=== PATIENT | female | born 1980 | race Caucasian/White ===

== ENCOUNTER 2020-02-05 04:57 | Emergency (ER) | payer SELFPAY ==
[2020-02-05] MEDS ORDERED: ONDANSETRON HCL INJ/PF 4 MG/2 ML SDV IV ONE (05:23)
[2020-02-05] MEDS ORDERED: NORMAL SALINE 1000 ML 1,000 ML IV PRN (05:24)
[2020-02-05 05:48] LABS: ABSOLUTE LYMPHOCYTES (AUTO) 3.3 10^3/uL (0.5-4.7); ABSOLUTE MONOCYTES (AUTO) 0.4 10^3/uL (0.1-1.4); ABSOLUTE NEUT (AUTO) 2.1 10^3/uL (1.7-8.2); BASOPHILS % (AUTO) 0.5 % (0-2); EOSINOPHILS % (AUTO) 0.2 % (0-6); HEMATOCRIT 42.6 % (36.0-47.0); HEMOGLOBIN 14.8 g/dL (12.0-15.5); LYMPHOCYTES % (AUTO) 55.7 % (13-45); MEAN CORPUSCULAR HEMOGLOBIN 33.2 pg (27.0-33.4); MEAN CORPUSCULAR HGB CONC 34.7 g/dL (32.0-36.0); MEAN CORPUSCULAR VOLUME 96 fl (80-97); MONOCYTES % (AUTO) 7.2 % (3-13); PLATELET COUNT 107 10^3/uL (150-450); RED BLOOD COUNT 4.45 10^6/uL (3.72-5.28); RED CELL DISTRIBUTION WIDTH 21.2 % (11.5-14.0); SEGMENTED NEUTROPHILS % (AUTO) 36.4 % (42-78); TOTAL CELLS COUNTED % (AUTO) 100 %; WHITE BLOOD COUNT 5.8 10^3/uL (4.0-10.5)
[2020-02-05 06:17] LABS: ALBUMIN 5.1 g/dL (3.5-5.0); ALKALINE PHOSPHATASE 110 U/L (38-126); ANION GAP 19 (5-19); ASPARTATE AMINO TRANSFERASE 248 U/L (14-36); BILIRUBIN,DIRECT 0.4 mg/dL (0.0-0.4); BLOOD UREA NITROGEN 13 mg/dL (7-20); CALCIUM 8.9 mg/dL (8.4-10.2); CARBON DIOXIDE 24 mmol/L (22-30); CHLORIDE 96 mmol/L (98-107); GLUCOSE 117 mg/dL (75-110); POTASSIUM 3.7 mmol/L (3.6-5.0); TOTAL PROTEIN 8.3 g/dL (6.3-8.2)
--- NOTE | 2020-02-05 06:52 | ER Document Report ---
ED General - General Mode of Arrival: Ambulatory Information source: Patient - HPI Onset: Other - She states her last drink was at 10:00 last night she had 1/2 bottle of vodka Onset/Duration: Persistent Quality of pain: No pain Severity: None Pain Level: Denies Associated symptoms: Other - Agitation and tremors Exacerbated by: Denies Relieved by: Denies Similar symptoms previously: Yes Recently seen / treated by doctor: No <BRUNO PALOMO - Last Filed: 02/05/20 07:24> <BRUNILDA SHEPHERD - Last Filed: 02/05/20 14:53> - General Chief Complaint: Alcohol Withdrawl Stated Complaint: ETOH ABUSE Time Seen by Provider: 02/05/20 06:04 Notes: 39-year-old female presented to ED for alcohol abuse. She states her mother took her to [facility] this morning for alcohol detox and she was told that she had to come to the ER because her alcohol was too high. She states that was 5 according to the patient. She states she drinks a bottle of vodka at least every day. She states she has been drinking vodka for 10 years and every time she tries to stop drinking she develops tremors and cannot control this so she does not complete her detox. She states she did try to go over there but they told her she was too drunk. She denies any hallucinations at this time. She states she does develop them as she becomes more sober. She states she had her last drink at 10:00 last night. (BRUNO PALOMO) - Related Data Allergies/Adverse Reactions: No Known Allergies Allergy (Unverified 02/05/20 05:08) Past Medical History - General Information source: Patient - Social History Smoking Status: Never Smoker Chew tobacco use (# tins/day): No Frequency of alcohol use: Heavy Drug Abuse: None Lives with: Family Family History: Reviewed & Not Pertinent Patient has homicidal ideation: No - Past Medical History Cardiac Medical History: Reports: Hx Hypertension Pulmonary Medical History: Reports: None EENT Medical History: Reports: None Neurological Medical History: Reports: None Endocrine Medical History: Reports: None Renal/ Medical History: Reports: None Malignancy Medical History: Reports: None GI Medical History: Reports: Hx Gastroesophageal Reflux Disease Musculoskeletal Medical History: Reports None Skin Medical History: Reports None Psychiatric Medical History: Reports: None Traumatic Medical History: Reports: None Infectious Medical History: Reports: None Past Surgical History: Reports: Other - Ever fundoplication <BRUNO PALOMO - Last Filed: 02/05/20 07:24> Review of Systems - Review of Systems Constitutional: No symptoms reported EENT: No symptoms reported Cardiovascular: No symptoms reported Respiratory: No symptoms reported Gastrointestinal: No symptoms reported Genitourinary: No symptoms reported Female Genitourinary: No symptoms reported Musculoskeletal: No symptoms reported Skin: No symptoms reported Hematologic/Lymphatic: No symptoms reported Neurological/Psychological: Anxiety, Other - Agitation states she feels like she is starting to develop tremors -: Yes All other systems reviewed and negative <BRUNO PALOMO - Last Filed: 02/05/20 07:24> Physical Exam - Vital signs Interpretation: Normal - General General appearance: Appears well, Alert - HEENT Head: Normocephalic, Atraumatic Eyes: Normal Pupils: PERRL - Respiratory Respiratory status: No respiratory distress Chest status: Nontender Breath sounds: Normal Chest palpation: Normal - Cardiovascular Rhythm: Regular Heart sounds: Normal auscultation Murmur: No - Abdominal Inspection: Normal Distension: No distension Bowel sounds: Normal Tenderness: Nontender Organomegaly: No organomegaly - Back Back: Normal, Nontender - Extremities General upper extremity: Normal inspection, Nontender, Normal color, Normal ROM, Normal temperature General lower extremity: Normal inspection, Nontender, Normal color, Normal ROM, Normal temperature, Normal weight bearing. 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 Sensory: Normal - Psychological Associated symptoms: Normal affect, Normal mood - Skin Skin Temperature: Warm Skin Moisture: Dry Skin Color: Normal <BRUNO PALOMO - Last Filed: 02/05/20 07:24> - Vital signs Vitals: Temp Pulse Resp BP Pulse Ox 98.7 F 108 H 20 143/107 H 98 02/05/20 05:07 02/05/20 05:07 02/05/20 05:07 02/05/20 05:07 02/05/20 05:07 Course - Laboratory Result Diagrams: 02/05/20 05:33 02/05/20 05:33 <BRUNO PALOMO - Last Filed: 02/05/20 07:24> - Laboratory Result Diagrams: 02/05/20 05:33 02/05/20 05:33 <BRUNILDA SHEPHERD - Last Filed: 02/05/20 14:53> - Re-evaluation Re-evalutation: 02/05/20 09:10 patient sleeping at this time, HR 104 on monitor, no distress 02/05/20 14:51 Patient is awake and alert answering questions appropriately. Her alcohol level has come down to 232. She is ambulating without a staggered gait or ataxic gait. She is medically cleared to go to [facility] for treatment for alcohol abuse. Clinically sober 02/05/20 14:53 (BRUNILDA SHEPHERD) - Vital Signs Vital signs: Temp Pulse Resp BP Pulse Ox 98.7 F 108 H 13 114/79 98 02/05/20 05:07 02/05/20 05:07 02/05/20 10:01 02/05/20 10:00 02/05/20 10:01 - Laboratory Laboratory results interpreted by me: 02/05/20 02/05/20 05:33 05:33 RDW 21.2 H Plt Count 107 L Lymph % (Auto) 55.7 H Seg Neutrophils % 36.4 L Chloride 96 L Glucose 117 H AST 248 H ALT 112 H Total Protein 8.3 H Albumin 5.1 H Serum Alcohol 442 H* Discharge <BRUNO PALOMO - Last Filed: 02/05/20 07:24> <BRUNILDA SHEPHERD - Last Filed: 02/05/20 14:53> - Discharge Clinical Impression: Alcohol abuse Condition: Stable Disposition: HOME, SELF-CARE Additional Instructions: proceed to [place] for treatment of alcoholism and alcohol abuse
[2020-02-05] MEDS: LORAZEPAM 1 MG TABLET PO PRN ×2 (06:53→12:37)
[2020-02-05 07:10] LABS: ALCOHOL 442 mg/dL (NONE DETECTED)
[2020-02-05 07:19] LABS: URINE AMPHETAMINES SCREEN NEGATIVE; URINE BARBITURATES SCREEN NEGATIVE; URINE BENZODIAZEPINES SCREEN NEGATIVE; URINE COCAINE SCREEN NEGATIVE; URINE MARIJUANA (THC) SCREEN NEGATIVE; URINE METHADONE SCREEN NEGATIVE; URINE PHENCYCLIDINE SCREEN NEGATIVE
[2020-02-05] MEDS: NORMAL SALINE 1000 ML 1,000 ML with POTASSIUM CHLORIDE 20 MEQ, MAGNESIUM SULFATE 8 MEQ,... IV SCH ×10 (09:42→10:50)
[2020-02-05 10:29] VITALS: BP 114/79
[2020-02-05] MEDS ORDERED: NORMAL SALINE 1000 ML 1,000 ML with POTASSIUM CHLORIDE 20 MEQ, MAGNESIUM SULFATE 8 MEQ,... IV SCH ×5 (18:00)
== END 2020-02-05 15:31 | disposition home or self-care (01) ==
LOC: ER 04:57
DX: F10.239 Alcohol dependence with withdrawal, unspecified (principal); R45.1 Restlessness and agitation; R25.1 Tremor, unspecified; I10 Essential (primary) hypertension
CPT/HCPCS: 99284; 96361; 96375; 96365; 96366; 36415; 82962; 80307 ×2; 85025; 80053; J3475; J3480; J3411; J2405; J7030; J3490

== ENCOUNTER 2020-02-07 02:52 | Emergency (ER) | payer SELFPAY ==
[2020-02-07] MEDS ORDERED: HALOPERIDOL LACTATE INJ 5 MG/1 ML VIAL IM ONE (03:23)
[2020-02-07] MEDS ORDERED: LORAZEPAM INJ 2 MG/1 ML VIAL IM ONE (03:24)
[2020-02-07] MEDS ORDERED: DIPHENHYDRAMINE HCL 50 MG/ML VIAL IM ONE (03:24)
--- NOTE | 2020-02-07 03:48 | ER Document Report ---
Entered by MARIO LANCE SCRIBE 02/07/20 0324 Acting as scribe for:LELIA BARRETO DO ED Psych Disorder / Suicide - General Chief Complaint: Psych Problem Stated Complaint: HALLUCINATION Mode of Arrival: Medic Information source: Patient, Emergency Med Personnel Notes: This 39 year old female patient with a history of heavy ETOH abuse brought in by EMS from [facility] presents to the ED today with complaints of hallucinations that started just prior to arrival. Per EMS, staff at [facility] report that the patient began hallucinating and throwing thing around the room, so they administered x2 mg Ativan PO and x5 mg Haldol PO at 0200 this morning. Patient states that she quit drinking x1.5 weeks ago; however, she was seen here x2 nights ago for ETOH abuse with a serum alcohol of 442; she admitted that she drank 1/2 gallon of vodka at that time, which is a daily event for her. - Related Data Allergies/Adverse Reactions: No Known Allergies Allergy (Unverified 02/05/20 05:08) Past Medical History - General Information source[facility] - Social History Smoking Status: Unknown if Ever Smoked Cigarette use (# per day): No Chew tobacco use (# tins/day): No Smoking Education Provided: No Frequency of alcohol use: Heavy Lives with: Family Family History: Reviewed & Not Pertinent Patient has suicidal ideation: No Patient has homicidal ideation: No - Past Medical History Cardiac Medical History: Reports: Hx Hypertension GI Medical History: Reports: Hx Gastroesophageal Reflux Disease Past Surgical History: Reports: Other - Ever fundoplication Review of Systems - Review of Systems -: Yes ROS unobtainable due to patient's medical condition Physical Exam - Vital signs Vitals: Temp Pulse Resp BP Pulse Ox 98.8 F 97 18 154/90 H 98 02/07/20 03:00 02/07/20 03:00 02/07/20 03:00 02/07/20 03:00 02/07/20 03:00 - General General appearance: Alert, Other - Unkempt appearance - HEENT Head: Normocephalic, Atraumatic Eyes: Normal Pupils: PERRL - Respiratory Respiratory status: No respiratory distress Chest status: Nontender Breath sounds: Normal Chest palpation: Normal - Cardiovascular Rhythm: Regular Heart sounds: Normal auscultation Murmur: No Friction rub: No Gallop: None auscultated - Abdominal Inspection: Normal Distension: No distension Bowel sounds: Normal Tenderness: Nontender - Abdomen soft Organomegaly: No organomegaly - Back Back: Normal, Nontender - Extremities General upper extremity: Normal inspection General lower extremity: Normal inspection. No: Edema - Neurological Neuro grossly intact: Yes - Psychological Associated symptoms: Visual hallucinations, Other - Volatile, emotional, and delusional - Skin Skin Temperature: Warm Skin Moisture: Dry Skin Color: Normal Course - Re-evaluation Re-evalutation: 02/07/20 03:58 Recheck at this time and pt is resting but alert and now more cooperative. Plan is to review the outstanding lab studies and have the psychiatry team evaluate her in the am. Perhaps Etoh related hallucinations vs underlying mental health disorder. Lab studies are pending at this time. - Vital Signs Vital signs: Temp Pulse Resp BP Pulse Ox 99.0 F 93 16 124/92 H 99 02/07/20 03:56 02/07/20 03:56 02/07/20 06:01 02/07/20 06:01 02/07/20 06:01 - Laboratory Result Diagrams: 02/07/20 05:01 02/07/20 03:52 Laboratory results interpreted by me: 02/07/20 02/07/20 03:52 05:01 WBC 2.7 L D RBC 3.60 L Hct 34.7 L RDW 20.9 H Plt Count 44 L Absolute Neuts (auto) 1.4 L Sodium 135.4 L Potassium 3.2 L Glucose 118 H Calcium 10.3 H Magnesium 1.4 L AST 171 H ALT 79 H Salicylates < 1.0 L Acetaminophen < 10 L - EKG Interpretation by Me EKG shows normal: Sinus rhythm Rate: Normal Rhythm: NSR - NSR Nl [place] [address] elevation or depression my interpretation. Discharge - Discharge Clinical Impression: Hallucinations Condition: Stable Disposition: PSYCH HOSP/UNIT I personally performed the services described in the documentation, reviewed and edited the documentation which was dictated to the scribe in my presence, and it accurately records my words and actions.
[2020-02-07 04:52] LABS: ALBUMIN 4.3 g/dL (3.5-5.0); ALKALINE PHOSPHATASE 73 U/L (38-126); ANION GAP 8 (5-19); ASPARTATE AMINO TRANSFERASE 171 U/L (14-36); BILIRUBIN,DIRECT 0.4 mg/dL (0.0-0.4); BILIRUBIN,TOTAL 1.1 mg/dL (0.2-1.3); BLOOD UREA NITROGEN 15 mg/dL (7-20); CALCIUM 10.3 mg/dL (8.4-10.2); CARBON DIOXIDE 29 mmol/L (22-30); CHLORIDE 98 mmol/L (98-107); GLUCOSE 118 mg/dL (75-110); POTASSIUM 3.2 mmol/L (3.6-5.0); TOTAL PROTEIN 7.1 g/dL (6.3-8.2)
[2020-02-07 04:53] LABS: ACETAMINOPHEN < 10 ug/mL (10-30); ALCOHOL < 10 mg/dL (NONE DETECTED); SALICYLATE < 1.0 mg/dL (2.0-20.0)
[2020-02-07 05:18] LABS: ABSOLUTE LYMPHOCYTES (AUTO) 1.1 10^3/uL (0.5-4.7); ABSOLUTE MONOCYTES (AUTO) 0.2 10^3/uL (0.1-1.4); ABSOLUTE NEUT (AUTO) 1.4 10^3/uL (1.7-8.2); BASOPHILS % (AUTO) 0.4 % (0-2); HEMATOCRIT 34.7 % (36.0-47.0); MEAN CORPUSCULAR HEMOGLOBIN 33.4 pg (27.0-33.4); MEAN CORPUSCULAR HGB CONC 34.7 g/dL (32.0-36.0); MEAN CORPUSCULAR VOLUME 96 fl (80-97); MONOCYTES % (AUTO) 5.6 % (3-13); RED CELL DISTRIBUTION WIDTH 20.9 % (11.5-14.0); TOTAL CELLS COUNTED % (AUTO) 100 %
[2020-02-07] MEDS ORDERED: POTASSIUM CHLORIDE 20 MEQ PACKET PO ONE (05:33)
[2020-02-07] MEDS ORDERED: MAGNESIUM OXIDE 400 MG TABLET PO ONE (05:33)
[2020-02-07 05:46] LABS: PLATELET COUNT 44 10^3/uL (150-450); WHITE BLOOD COUNT 2.7 10^3/uL (4.0-10.5)
[2020-02-07 07:03] LABS: APPEARANCE,URINE SLIGHTLY-CLOUDY; BILIRUBIN,URINE NEGATIVE (NEGATIVE); CALCIUM OXALATE CRYSTALS,URINE RARE /HPF; COLOR,URINE YELLOW; GLUCOSE, URINE NEGATIVE (NEGATIVE); KETONES,URINE NEGATIVE (NEGATIVE); LEUKOCYTE ESTERASE,URINE LARGE (NEGATIVE); NITRITE,URINE NEGATIVE (NEGATIVE); PROTEIN,URINE NEGATIVE (NEGATIVE)
--- NOTE | 2020-02-07 14:42 | EKG REPORT ---
SEVERITY:- ABNORMAL ECG - SINUS RHYTHM LEFT VENTRICULAR HYPERTROPHY BORDERLINE T ABNORMALITIES, INFERIOR LEADS : Confirmed by: Shell Browning MD 07-Feb-2020 14:41:34
--- NOTE | 2020-02-07 17:42 | ER Document Report ---
Doctor's Note Notes: 02/07/20 17:41 Patient's vital signs and previous labs, diagnostic images reviewed. Reviewed mental health notes, nurse's notes and previous providers notes. VSS. Pt is in no distress at this time. Denies any SI or HI. General: A&Ox3. Answers questions appropriately. Heart: RRR Lungs: CTAB Psych: sleepy, flat affect A/P: Continue monitoring and rec's per MH. Normal diet still on CIWA precautions
[2020-02-07] MEDS ORDERED: NITROFURANTOIN MONOHYD/M-CRYST 100 MG CAPSULE PO ONE (18:34)
[2020-02-07] MEDS ORDERED: PHENAZOPYRIDINE HCL 200 MG TABLET PO ONE (18:35)
--- NOTE | 2020-02-08 13:34 | PSYCHOLOGICAL NOTE ---
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 She had gotten there Thursday for alcohol detoxification and was acting appropriate until 0200 when she started complaining to staff she was seeing things, became agitated, barricaded herself in her room by putting chair against door, pulled her mattress off her bed and attempted to punch her window because the gas fumes from the chamber. They administered Ativan 2MG Intramuscular and Haldol 5MG by mouth at around 0200 without effectiveness. Patient remained restless and agitated with staff. She kept talking about needing to safe the others from the gas chamber, that she heard them coughing. Once in the ED patient avoided eye contact, was tearful, was writhing her hands together, and said she saw her children they are dying/she needs them to be beneficiary. She was subsequently put on a 24 Hour Petition for Evaluation. Chart review revealed patient was seen in the ED 02/05/2020 for alcohol withdrawal after [facility] sent her to the ED due to alcohol level of almost 500. She had stated then she drinks at least a bottle of Vodka daily, has for the 10 years and in the past when trying to detox she got tremors that she couldnt control so would not finish detox. Her Serum Alcohol Level was 442 upon arrival to ED then and once it decreased to 237 she was sent back to [facility]. At 1210 patient was sleeping. She had been administered Haldol 5, Ativan 2 and Benadryl 5 all Intramuscular at 0330 in ED. Allowed her to sleep. Her psychosis is likely from alcohol withdrawal. Labs indicate UTI. Hematology and Chemistry labs are all over the place. Clinical Presentation: Alcohol Withdrawal Induced Psychosis Impression/Plan: Recommendation to maintain 24 Hour Petition for Evaluation. Let patient sleep. She is likely experiencing psychosis from alcohol withdrawal. Consulted with Dr. Moran regarding the management and care of patient. ED Physician in agreement. ED Physician also started antibiotics for UTI and ordered other testing due to low WBC.
--- NOTE | 2020-02-08 14:44 | ER Document Report ---
ED General - General Chief Complaint: Psych Problem Stated Complaint: HALLUCINATION Primary Care Provider: [facility] [Outside] - Follow up as needed Mode of Arrival: Medic Notes: 39-year-old female with past medical history of hypertension and alcohol intoxication presents this morning after she was hallucinating over at [facility]. States that she was brought in on the wanting detox. Was placed over at [facility] and then she developed hallucinations this morning states that she was seeing and hearing things other people were not hearing. States that her last alcoholic beverage was just prior to her first admission to the hospital. States she had 1-2 shots of vodka. Reports that she is having some pain with urination. Denies any flank pain or suprapubic pain. She was treated with Macrobid here. Discussed with [facility] with mental health and from a mental health perspective she is cleared to go. She does have a low white count at 2.7 this is new. Her last white count on February 04 was 5.8. States that she is just bored. - Related Data Allergies/Adverse Reactions: No Known Allergies Allergy (Unverified 02/05/20 05:08) Past Medical History - General Information source: [facility] Records - Social History Smoking Status: Unknown if Ever Smoked Cigarette use (# per day): No Chew tobacco use (# tins/day): No Frequency of alcohol use: Heavy Lives with: Family Family History: Reviewed & Not Pertinent Patient has suicidal ideation: No Patient has homicidal ideation: No - Past Medical History Cardiac Medical History: Reports: Hx Hypertension GI Medical History: Reports: Hx Gastroesophageal Reflux Disease Past Surgical History: Reports: Other - Ever fundoplication Review of Systems - Review of Systems Constitutional: No symptoms reported EENT: No symptoms reported Cardiovascular: No symptoms reported Respiratory: No symptoms reported Gastrointestinal: No symptoms reported Genitourinary: No symptoms reported Female Genitourinary: See HPI Musculoskeletal: No symptoms reported Skin: No symptoms reported Neurological/Psychological: No symptoms reported Physical Exam - Vital signs Vitals: Temp Pulse Resp BP Pulse Ox 98.8 F 97 18 154/90 H 98 02/07/20 03:00 02/07/20 03:00 02/07/20 03:00 02/07/20 03:00 02/07/20 03:00 - Notes Notes: Adult General: GENERAL: Alert, interacts well. No acute distress HEAD: Normocephalic, atraumatic EYES: Pupils equal, round and reactive to light. Extraocular movements intact. ENT: Airway patent. Nares patent. NECK: Full range of motion. Supple. Trachea midline. LUNGS: Clear to auscultation bilaterally, no wheezes, rales, or rhonchi. No respiratory distress. Nontender chest wall. HEART: Regular rate and rhythm. No murmurs, rubs or gallops. ABDOMEN: Soft, nontender. Nondistended. Bowel sounds present in all 4 quadrants. No rebound, guarding or masses. GENITOURINARY: Deferred EXTREMITIES: Moves all 4 extremities spontaneously. No edema, normal radial and dorsal pedis pulses bilaterally. No cyanosis. BACK: Moves all extremities with full range of motion. NEUROLOGICAL: Mild tremor in bilateral hands. Alert and oriented x3. Normal speech. Strength 5/ 5 in all extremities. PSYCH: Normal affect, normal mood. SKIN: Warm, dry, normal turgor. No rashes or lesions noted. Course - Re-evaluation Re-evalutation: 02/08/20 14:42 Patient is cleared from mental health perspective. I will go ahead and redraw patient's CBC to reevaluate her white count. Her white count is normal I will go ahead discharge the patient. Also treat patient for urinary tract infection as she has positive leukocyte esterase and blood in her urine. She has had 1 dose of Macrobid while in the emergency department was also given phenazopyridine. COVID and HIV are negative. CBC shows increased her platelets to 55 and an increase of her WBCs to 3.7. I discussed this with the patient that her alcohol use is likely contributing to this. I discussed with her that she is likely at increased risk of developing infections and increased risk of bleeding at this time. Discussed with patient that she will need to follow-up with her primary care provider to trend these values in the appropriate direction. She acknowledges and verbalizes understanding of instructions and plan. She is medically cleared. Is also been cleared from psych. Who recommends no medications. She has appropriate follow-up with a mental health provider. Counseled for alcohol detox. Patient acknowledges and verbalizes understanding of all instructions and plan. All questions answered. - Vital Signs Vital signs: Temp Pulse Resp BP Pulse Ox 99.0 F 90 12 137/104 H 97 02/08/20 16:00 02/08/20 16:00 02/08/20 16:00 02/08/20 16:00 02/08/20 16:00 - Laboratory Result Diagrams: 02/08/20 14:48 02/07/20 03:52 Laboratory results interpreted by me: 02/07/20 02/07/20 02/07/20 03:52 05:01 06:46 WBC 2.7 L D RBC 3.60 L Hct 34.7 L MCV MCH RDW 20.9 H Plt Count 44 L Absolute Neuts (auto) 1.4 L Sodium 135.4 L Potassium 3.2 L Glucose 118 H Calcium 10.3 H Magnesium 1.4 L AST 171 H ALT 79 H Urine Blood MODERATE H Urine Urobilinogen 2.0 H Ur Leukocyte Esterase LARGE H Salicylates < 1.0 L Acetaminophen < 10 L 02/08/20 14:48 WBC 3.7 L RBC Hct MCV 98 H MCH 33.7 H RDW 21.0 H Plt Count 55 L Absolute Neuts (auto) Sodium Potassium Glucose Calcium Magnesium AST ALT Urine Blood Urine Urobilinogen Ur Leukocyte Esterase Salicylates Acetaminophen Discharge - Discharge Clinical Impression: Hallucinations Alcohol withdrawal Qualifiers: Complication of substance-induced condition: with perceptual disturbance Qualified Code(s): F10.232 - Alcohol dependence with withdrawal with perceptual disturbance UTI (urinary tract infection) Qualifiers: Indwelling urinary catheter type: unspecified Encounter type: initial encounter Condition: Stable Disposition: HOME, SELF-CARE Instructions: Cephalexin ([facility]), Urinary Tract Infection ([facility]) Additional Instructions: You have been evaluated both medical and behavioral health teams have been deemed appropriate for discharge. You are encouraged to follow-up with an outpatient mental health/substance abuse provider for continued treatment. You have been provided local resource list of area providers including detox facilities and mobile crisis contact information. Alcohol Withdrawal Your symptoms are caused by alcohol withdrawal. After a period of frequent drinking, the brain and body are changed by the alcohol. When you quit or reduce your drinking, the nervous system becomes unstable. Withdrawal symptoms can start a few hours after your last drink, but sometimes don't begin until a coup le of days later. Symptoms can include shakiness, sweating, insomnia, nausea, vomiting, fearfulness, hallucinations, and seizures. In addition to the acute effects of alcohol withdrawal, we often have to deal with the medical effects of alcoholism. These problems often include dehydration, stomach irritation, intestinal bleeding, low blood sugar, liver disease, and pancreas inflammation. Treatment for alcohol withdrawal includes mild sedatives, vitamins, and fl uids. You need to be with someone who can help if symptoms become severe. Many patients can withdraw at home. Admission to the hospital or a detox facility may be necessary if withdrawal symptoms are severe and uncontrollable. Abstaining from alcohol is the only effective long-term treatment. If you start drinking again, you will not be able to control yourself after the first drink. Treatment programs are available. In addition, many alcoholics benefit from Alcoholics Anonymous or other support groups available through your counselor or cheondoism valve lapper. [facility] and A[facility]-TE[facility] are support groups for friends and family members of an alcoholic. Go to the emergency room if you develop persistent vomiting, severe abdominal pain, fever, shortness of breath, hallucinations, uncontrollable tremors, or seizures. These follow-up with your primary care provider soon as possible. You are also being treated for UTI. Please take medication as prescribed. Prescriptions: Cephalexin Monohydrate [Keflex 500 mg Capsule] 500 mg PO Q6H 5 Days #20 capsule Phenazopyridine HCl [Pyridium 200 mg Tablet] 200 mg PO TID #15 tablet Referrals: [facility] [Outside] - Follow up as needed
[2020-02-08 15:08] LABS: HEMATOCRIT 39.2 % (36.0-47.0); HEMOGLOBIN 13.5 g/dL (12.0-15.5); MEAN CORPUSCULAR HEMOGLOBIN 33.7 pg (27.0-33.4); MEAN CORPUSCULAR HGB CONC 34.6 g/dL (32.0-36.0); MEAN CORPUSCULAR VOLUME 98 fl (80-97); RED BLOOD COUNT 4.01 10^6/uL (3.72-5.28); WHITE BLOOD COUNT 3.7 10^3/uL (4.0-10.5)
[2020-02-08 16:04] LABS: PLATELET COUNT 55 10^3/uL (150-450)
[2020-02-08 16:17] VITALS: BP 137/104
== END 2020-02-08 17:28 | disposition home or self-care (01) ==
LOC: ER 02:52
DX: R44.3 Hallucinations, unspecified (principal); F10.232 Alcohol dependence with withdrawal with perceptual disturbance; N39.0 Urinary tract infection, site not specified; Y90.8 Blood alcohol level of 240 mg/100 ml or more; I10 Essential (primary) hypertension; Z03.818 Encounter for observation for suspected exposure to other biological agents ruled out
CPT/HCPCS: 93005; 99285; 96372; 36415; 80307 ×3; 83735; 85025; 85027; 87635; 80053; 81001; 86701; 93010; J1200; J1630; J3490 ×2; J2060; J8499; C9803